=== PATIENT | male | born 1990 | race Caucasian/White ===

== ENCOUNTER → 2017-08-16 | Outpatient (CLI) | payer OTHER ==
[~2017-08-16] MED LIST: CLXUNK PO; MULTTAB58 PO; VERAMIST NAE; VITAMIN D
--- NOTE | 2017-08-16 10:57 | DIAGNOSTIC IMAGING REPORT ---
RIGHT FIRST TOE 3 VIEWS CLINICAL HISTORY: First toe swelling. FINDINGS: 3 views of the right first toe are obtained. No prior studies are available for comparison at the time of dictation. The skeletal structures are well mineralized. No fracture is seen. There is no bony erosion or periostitis. The first metatarsophalangeal and interphalangeal joints are preserved. Soft tissue edema is present in the first toe. No radiodense foreign body is identified. IMPRESSION: Soft tissues swelling with no acute bony abnormality seen in the first toe. Electronically signed by: Jose Eduardo Townsend M.D. 08/16/2017 10:56 AM Dictated Date/Time: 08/16/2017 10:52 AM
--- NOTE | 2017-08-16 11:01 | DIAGNOSTIC IMAGING REPORT ---
R FOOT MIN 3 VIEWS ROUTINE CLINICAL HISTORY: SWELLING OF TOE OF RIGHT FOOT pain. Edema. COMPARISON: None. DISCUSSION: The bones and joint spaces appear intact. There is no evidence of fracture, dislocation or bony disease. There is no evidence for soft tissue swelling. IMPRESSION: Negative study. The above report was generated using voice recognition software. It may contain grammatical, syntax or spelling errors. Electronically signed by: Timothy Blackmon M.D. 08/16/2017 11:00 AM Dictated Date/Time: 08/16/2017 10:59 AM
== END | disposition home or self-care (01) ==
LOC: C.RAD1850 10:38
PROVIDERS: ATTEND Nurse Practitioner
DX: M79.89 Other specified soft tissue disorders (principal); M79.674 Pain in right toe(s)